=== PATIENT | male | born 1970 | race American Indian/Alaskan Native ===

== ENCOUNTER 2017-01-11 09:47 | Inpatient (IN) | payer MEDICARE ==
[2017-01-11] MEDS ORDERED: MORPHINE IM ONE (10:35)
[2017-01-11] MEDS ORDERED: ATIVAN IV ONE (10:56)
[2017-01-11] MEDS ORDERED: MORPHINE IV ONE (10:56)
[2017-01-11] MEDS ORDERED: BRETHINE SUB-Q ONE ×2 (10:56→12:26)
[2017-01-11] MEDS ORDERED: MARCAINE 0.5% INFILTRATI ONE (10:56)
[2017-01-11] MEDS ORDERED: XYLOCAINE 1% 20 mL INFILTRATI ONE (10:57)
[2017-01-11] MEDS ORDERED: NEO-SYNEPHRINE 1 MG, NACL P/F VIAL (10 ML) 9.9 ML IJ**NOT IV ONE (11:30)
[2017-01-11] MEDS ORDERED: NEO SYNEPHRINE/NS Syringe(OR USE) IV ONE ×2 (11:50→13:00)
[2017-01-11] MEDS ORDERED: TYLENOL PO PRN (12:56)
[2017-01-11] MEDS ORDERED: PROVENTIL IH PRN (12:56)
--- NOTE | 2017-01-11 13:01 | XRay Report ---
CHEST ONE VIEW INDICATION: Hypertension. COMPARISON: None similar at this institution. FINDINGS: Portable, single, frontal chest radiograph demonstrates normal cardiomediastinal silhouette. Clear lungs. Unremarkable bones. Extrinsic EKG leads. CONCLUSION: No acute disease in the chest. Thank you for the opportunity to participate in this patient's care.
--- NOTE | 2017-01-11 13:02 | Emergency Department Report ---
ED Male HPI - General Chief complaint: Urogenital-Male Stated complaint: PRIAPISM Time Seen by Provider: 01/11/17 10:39 Source: patient Mode of arrival: Ambulatory Limitations: No Limitations - History of Present Illness Initial comments: The patient states that he woke up with an erection that is painful. He is an inpatient at [facility]. He states he is here for a "nervous breakdown". He is voluntary patient. One of his medicines taken his trazodone. He does state he has taken this medicine in the past however without ill effect. He states he is still able to urinate. Complaint: other -: During the night Location: penis Radiation: none Severity: severe Quality: aching Consistency: constant Improves with: none Worsens with: none new medication denies other symptoms - Related Data Sexually active: Yes Allergies Allergy/AdvReac Type Severity Reaction Status Date / Time No Known Allergies Allergy Unverified 01/11/17 09:57 ED Review of Systems ROS: Stated complaint: PRIAPISM Other details as noted in HPI Constitutional: denies: chills, fever Eyes: denies: eye pain, eye discharge, vision change ENT: denies: ear pain, throat pain Respiratory: denies: cough, shortness of breath, wheezing Cardiovascular: denies: chest pain, palpitations Endocrine: no symptoms reported Gastrointestinal: denies: abdominal pain, nausea, diarrhea Genitourinary: as per HPI. denies: urgency, dysuria Musculoskeletal: denies: back pain, joint swelling, arthralgia Skin: denies: rash, lesions Neurological: denies: headache, weakness, paresthesias Psychiatric: denies: anxiety, depression Hematological/Lymphatic: denies: easy bleeding, easy bruising ED Past Medical Hx - Past Medical History Hx Psychiatric Treatment: Yes (major depressive disorder / bipolar / schizophrenia) - Surgical History Past Surgical History?: No - Social History Smoking Status: Former Smoker Substance Use Type: Alcohol ED Physical Exam - General Limitations: No Limitations General appearance: alert, in no apparent distress - Head Head exam: Present: atraumatic, normocephalic - Eye Eye exam: Present: normal appearance - ENT ENT exam: Present: mucous membranes moist - Neck Neck exam: Present: normal inspection - Respiratory Respiratory exam: Present: normal lung sounds bilaterally. Absent: respiratory distress - Cardiovascular Cardiovascular Exam: Present: regular rate, normal rhythm. Absent: systolic murmur, diastolic murmur, rubs, gallop - GI/Abdominal GI/Abdominal exam: Present: soft, normal bowel sounds. Absent: distended, tenderness, guarding, rebound, rigid - Rectal Rectal exam: Present: deferred - exam: Present: other (severe (100%) priapism) External exam: Present: other (otherwise unremarkable) - Extremities Exam Extremities exam: Present: normal inspection - Back Exam Back exam: Present: normal inspection - Neurological Exam Neurological exam: Present: alert, oriented X3, CN II-XII intact. Absent: motor sensory deficit - Psychiatric Psychiatric exam: Present: normal affect, normal mood - Skin Skin exam: Present: warm, dry, intact, normal color. Absent: rash ED Course Vital Signs 01/11/17 01/11/17 01/11/17 09:54 10:24 10:30 Temperature 97.6 F Pulse Rate 80 84 Respiratory 17 11 L Rate Blood Pressure 170/119 146/95 155/94 O2 Sat by Pulse 99 Oximetry 01/11/17 01/11/17 01/11/17 10:45 11:00 11:15 Temperature Pulse Rate 79 78 79 Respiratory 22 8 L 13 Rate Blood Pressure 163/104 159/107 173/115 O2 Sat by Pulse Oximetry 01/11/17 01/11/17 01/11/17 11:30 11:45 12:01 Temperature Pulse Rate 92 H 101 H 120 H Respiratory 20 17 27 H Rate Blood Pressure 177/109 156/83 182/108 O2 Sat by Pulse Oximetry 01/11/17 12:15 Temperature Pulse Rate 101 H Respiratory 15 Rate Blood Pressure 144/87 O2 Sat by Pulse Oximetry - Reevaluation(s) Reevaluation #1: I spoke with Dr. Jones the urologist. He asked me to proceed with attempted reduction of the priapism. See note. He stated he would consult. 01/11/17 13:11 Reevaluation #2: Procedure note: Reduction of priapism The patient was premedicated with morphine and Ativan. A mixture of 0.5 bupivacaine and 1% lidocaine was deployed at the base of the penis to achieve a penile block. This was successful. I used a Y set attached to an 18-gauge needle and aspirated 100-120 mL of blood from the corpus cavernosus at the 2:00 and 10 o'clock position. Saline was used for irrigation as well. I instilled 0.5 mg of phenylephrine into the corpus cavernosus bilaterally. Placement was confirmed using saline flush. The patient's priapism did reduce to at least 25% of its initial size IV in lieu of the procedure. The patient was symptomatically improved. Dr. Jones was paged to notify him of the above progress. 01/11/17 13:13 Reevaluation #3: The patient was found to have labile hypertension in the emergency department. He was admitted by Dr. Bray to the hospitalist service. Dr. Bray informed me that his blood pressure did go down spontaneously. I do not believe he has yet had to medicate the patient. A consult was placed to Dr. Jones. 01/11/17 13:17 - Procedure Description Procedures done: Reduction of priapism. See above note Critical care attestation.: If time is entered above; I have spent that time in minutes in the direct care of this critically ill patient, excluding procedure time. ED Disposition Clinical Impression: Priapism, Uncontrolled hypertension Disposition: OP ADMIT IP TO THIS HOSP Is pt being admited?: Yes Does the pt Need Aspirin: Yes Condition: Stable Instructions: Hypertension (ED) Referrals: ALEC GRACE MD [Primary Care Provider] - 3-5 Days Time of Disposition: 13:19
--- NOTE | 2017-01-11 13:17 | Admit Criteria Form ---
Admission Criteria Documentation: UROLOGIC DISEASE G Clinical Indications for Admission to Inpatient Care (Place ' X' for any and all applicable criteria): Hospital admission is needed for appropriate care of the patient because of 1 or more of the following: [ ]I. New-onset Reduced urine output, or hydronephrosis remaining after emergency or observation level care (as appropriate ) [ ]II. Renal disease needing inpatient care indicated by 1 or more of the following(2)(3)(4): [ ]a) Acute renal failure [ ]b) Significant uremic complications [ ]c) Acute kidney injury (that does not qualify as Acute renal failure ) requiring inpatient care indicated by ALL of the following(5)(6)(7)(8) (9): [ ]i) Worsening clinical status (eg, rising creatinine) despite outpatient and observation care treatment (eg, hydration) [ ]ii) Acute kidney injury indicated by 1 or more of the following: [ ]1) 2-fold or more rise in serum creatinine from baseline [ ]2) Reduction of more than 50% in estimated glomerular filtration rate from baseline [ ]3) Urine output less than 0.5 mL/kg/hr for 12 hours despite adequate volume status [ ]d) Systemic cause (eg, Goodpasture syndrome ) needing inpatient care [ ]e) Rapidly progressive renal disease needing inpatient care (eg, plasmapheresis, immunosuppression ) Anasarca needing inpatient care [ ]f) Hemoptysis [ ]g) Hemolysis, thrombosis, or infraction [ ]h) Anasarca needing inpatient care [ ]III. New-onset or uncontrolled nephrogenic diabetes insipidus [ ]IV. Urologic infection requiring inpatient care as indicated by 1 or more of the following(10)(11)(12): [ ]a) Hemodynamic instability [ ]b) Dehydration that is severe or persistent [ ]c) Failure of outpatient treatment [ ]d) Nisha's gangrene [ ]e) Urinary obstruction [ ]f) Immunocompromised state (eg, chronic steroid use ) [ ]g) Known renal or urologic abnormalities(eg, indwelling catheter, structural abnormalities ) [ ]h) Recent urologic manipulation or procedure Urinary obstruction [ ]i) Abscess requiring drainage Immunocompromised state [ ]V. Acute urinary retention requiring inpatient management as indicated by ANY ONE of the following(1)(13): [ ]a) Retention cannot be alleviated via emergency or observation level care (eg, urinary catheter placement) [ ]b) Hemodynamic instability [ ]c) Acute neurologic etiology (eg, cauda equina) [ ]d) Dehydration or other complications not manageable with emergency or observation level care [ ]e) Acute kidney injury (that does not qualify as Acute renal failure ) requiring inpatient care indicated by ALL of the following(5)(6)(7)(8) (9): [ ]i) Acute kidney injury indicated by ANY ONE of the following: [ ]1) 2-fold or more rise in serum creatinine from baseline [ ]2) Reduction of more than 50% in estimated glomerular filtration rate from baseline [ ]ii) Worsening clinical status (eg, rising creatinine) despite outpatient and observation care treatment (eg, hydration) [ ]. Gross hematuria requiring inpatient management as indicated by ANY ONE of the following(1)(2): [ ]a) Evidence of renal obstruction [ ]b) Reduced urine output [ ]c) Clot retention after urinary catheterization and irrigation [ ]d) Severe Anemia [ ]e) Systemic cause needing inpatient treatment (eg, Goodpasture syndrome) [X]VII. Priapism not responsive to emergency or observation care treatment [ ]VII. Scrotal, testicular, or epididymal disorder requiring inpatient care indicated by 1 or more of the following(1)(14)(15)(16): [ ]a) Scrotal edema or infection not manageable with emergency or observation level care [ ]b) Orchitis not manageable with emergency or observation level care [ ]c) Epididymitis not manageable with emergency or observation level of care [ ]d) Other scrotal, testicular, or epididymal disorder (eg, infection, inflammation) not manageable with emergency or observation level care [ ]IX. Complications of transplanted kidney indicated by 1 or more of the following [ ]a) Acute graft rejection requiring inpatient management (eg, intravenous immunosuppression) [ ]b) Acute kidney injury indicated by ALL of the following i) Acute kidney injury indicated by 1 or more of the following 1) 2-fold or more rise in serum creatinine from baseline 2) Reduction of more than 50% in estimated glomerular filtration rate from baseline 3) Urine output less than 0.5 mL/kg/hr for 12 hours despite adequate volume status ii) Kidney injury too severe or not responsive to outpatient and observation care treatment (eg, hydration) [ ]c) Infection requiring inpatient management (eg, Hemodynamic instability, need for intravenous antimicrobial treatment) [ ]d) Other complication of transplanted kidney requiring patient management (eg, severe diarrhea leading to malabsorption) [ ]X. Trauma to renal, genital, or urologic system requiring inpatient medical care [ ]XI. Urologic Disease condition, symptom, or finding for which emergency and observation care have failed or are not considered appropriate. The original [employer] content created by [employer] has been revised. The portions of the content which have been revised are identified through the use of italic text or in bold, and [facility] has neither reviewed nor approved the modified material. All other unmodified content is copyright [facility]. Please see references footnoted in the original [facility] edition 2016 Admission Criteria Met: Yes
[2017-01-11] MEDS ORDERED: BABY ASPIRIN PO ONE (13:19)
[2017-01-11 13:36] LABS: Alanine Aminotransferase 15 units/L (7-56); Albumin 4.2 g/dL (3.9-5); Albumin/Globulin Ratio 1.4 %; Alkaline Phosphatase 59 units/L (35-129); Basophils % (Auto) 0.5 % (0.0-1.8); Bilirubin,Total < 0.20 mg/dL (0.1-1.2); Blood Urea Nitrogen 9 mg/dL (9-20); Calcium 9.3 mg/dL (8.4-10.2); Carbon Dioxide 27 mmol/L (22-30); Eosinophils % (Auto) 1.6 % (0.0-4.3); Glucose 101 mg/dL (75-100); Hemoglobin 11.9 gm/dl (11.8-15.2); Mean Corpuscular HGB Conc 34 % (32-34); Mean Corpuscular Hemoglobin 34 pg (28-32); Mean Corpuscular Volume 99 fl (84-94); Platelet Count 330 K/mm3 (140-440); Red Blood Count 3.55 M/mm3 (3.65-5.03); Red Cell Distribution Width 12.4 % (13.2-15.2); Total Protein 7.2 g/dL (6.3-8.2); White Blood Count 6.1 K/mm3 (4.5-11.0)
[2017-01-11 13:37] LABS: Anion Gap 19 mmol/L; Chloride 100.4 mmol/L (98-107); Potassium 3.5 mmol/L (3.6-5.0); Sodium 143 mmol/L (137-145)
[2017-01-11 13:40] LABS: Bilirubin,Direct < 0.2 mg/dL (0-0.2)
[2017-01-11 13:44] LABS: INR 1.04 (0.87-1.13)
[2017-01-11 13:45] LABS: Partial Thromboplastin Time 28.4 Sec. (24.2-36.6)
[2017-01-11] MEDS ORDERED: BABY ASPIRIN ONE (13:47)
--- NOTE | 2017-01-11 16:08 | Consultation ---
History of Present Illness - Reason for Consult Consult date: 01/11/17 - History of Present Illness CC: priapism 6 yr old patient states that he woke up with an erection that is painful. He is an inpatient at [facility]. He states he is here for a "nervous breakdown". He is voluntary patient. One of his medicines taken his trazodone. He does state he has taken this medicine in the past however without ill effect. He states he is still able to urinate. no hx of priapism in the past (no sickle cell or drug abuse) The patient was premedicated with morphine and Ativan. A mixture of 0.5 bupivacaine and 1% lidocaine was deployed at the base of the penis to achieve a penile block. This was successful. I used a Y set attached to an 18-gauge needle and aspirated 100-120 mL of blood from the corpus cavernosus at the 2:00 and 10 o'clock position. Saline was used for irrigation as well. I instilled 0.5 mg of phenylephrine into the corpus cavernosus bilaterally. Placement was confirmed using saline flush. exam at 4pm (flaccid penis) discussed with Dr. Daniels & nurse A/P Priapism (appears durg induce----Trazadone) ice pack to penis x 24 hours Medications and Allergies Allergies Allergy/AdvReac Type Severity Reaction Status Date / Time No Known Allergies Allergy Unverified 01/11/17 09:57 Active Meds: Active Medications Acetaminophen (Tylenol) 650 mg PO Q4H PRN PRN Reason: Pain MILD(1-3)/Fever >100.5/GIRON Albuterol (Proventil) 2.5 mg IH Q4HRT PRN PRN Reason: Shortness Of Breath Influenza Virus Vaccine Quadrival (Fluarix Quad [id number](36 Mos+)) 0.5 ml IM .ONCE ONE Stop: 01/12/17 12:01 Exam - Constitutional Vitals: Temp Pulse Resp BP Pulse Ox 97.6 F 101 H 15 144/87 98 01/11/17 09:54 01/11/17 12:15 01/11/17 12:15 01/11/17 12:15 01/11/17 15:05 Results - Labs CBC & Chem 7: 01/11/17 13:04 01/11/17 13:04 Labs: Abnormal lab results 01/11/17 01/11/17 Range/Units 13:04 13:04 RBC 3.55 L (3.65-5.03) M/mm3 Hct 35.0 L (35.5-45.6) % MCV 99 H (84-94) fl MCH 34 H (28-32) pg RDW 12.4 L (13.2-15.2) % Hunt % (Auto) 7.5 H (0.0-7.3) % Potassium 3.5 L (3.6-5.0) mmol/L Glucose 101 H (75-100) mg/dL
--- NOTE | 2017-01-11 17:15 | History and Physical Report ---
History of Present Illness Date of admission: 01/11/17 12:56 Chief complaint: My leo wont to down History of present illness: 46 YO Male with Depression, Bipolar Disorder, Schizophrenia presents to ED for evaluation. Pt states that he awoke this am with a painful erection. He is an inpatient at [facility] undergoing voluntary treatment for a "nervous breakdown ". Pt is taking trazodone. PT states he is still able to urinate. Pt denies fever, chills, CP, palpitations, trauma, BRBPR, recent ill contacts, high risk sexual behavior, NVD, syncope, headache, dizziness, or hematuria. Pt seen and evaluated in ED, and underwent evacuation of 250cc of blood from his penis. Past History Past Medical History: other (Depression, bipolar, schizophrenia) Past Surgical History: No surgical history, Other (reviewed) Social history: single. denies: smoking, alcohol abuse, prescription drug abuse , IV drug use Family history: hypertension Medications and Allergies Allergies Allergy/AdvReac Type Severity Reaction Status Date / Time No Known Allergies Allergy Unverified 01/11/17 09:57 Active Meds: Active Medications Acetaminophen (Tylenol) 650 mg PO Q4H PRN PRN Reason: Pain MILD(1-3)/Fever >100.5/GIRON Albuterol (Proventil) 2.5 mg IH Q4HRT PRN PRN Reason: Shortness Of Breath Influenza Virus Vaccine Quadrival (Fluarix Quad [id number](36 Mos+)) 0.5 ml IM .ONCE ONE Stop: 01/12/17 12:01 Review of Systems Constitutional: no weight loss, no weight gain, no fever, no chills Ears, nose, mouth and throat: no ear pain, no ear discharge, no tinnitis, no decreased hearing, no nose pain Cardiovascular: no chest pain, no orthopnea, no palpitations, no rapid/ irregular heart beat, no edema Respiratory: no cough, no cough with sputum, no excessive sputum, no hemoptysis , no shortness of breath Gastrointestinal: no abdominal pain, no nausea, no vomiting, no diarrhea Genitourinary Male: genital pain, no dysuria, no hematuria, no flank pain, no discharge, no urinary hesitancy, no nocturia, no incontinence, no genital sores , no impotence, no decreased libido, no testicular pain, no testicular lump, no difficulties fathering child, no polyuria, no urinary retention, no kidney stones Rectal: no pain, no incontinence, no bleeding Musculoskeletal: no neck stiffness, no neck pain, no shooting arm pain, no arm numbness/tingling, no low back pain Integumentary: no rash, no pruritis, no redness, no sores, no wounds Neurological: no head injury, no paralysis, no weakness, no parathesias, no migraines, no change in speech, no memory loss Psychiatric: no anxiety, no memory loss, no change in sleep habits, no sleep disturbances, no insomnia Endocrine: no cold intolerance, no heat intolerance, no polyphagia, no excessive thirst, no thyroid mass, no palpatations Hematologic/Lymphatic: no easy bruising, no easy bleeding Allergic/Immunologic: no urticaria, no allergic rhinitis, no wheezing Exam - Constitutional Vitals: Temp Pulse Resp BP Pulse Ox 98.0 F 94 H 20 139/84 99 01/11/17 15:30 01/11/17 15:30 01/11/17 15:30 01/11/17 15:30 01/11/17 15:30 General appearance: Present: mild distress - EENT Eyes: Present: PERRL ENT: hearing intact, clear oral mucosa - Neck Neck: Present: supple, normal ROM - Respiratory Respiratory effort: normal Respiratory: bilateral: CTA - Cardiovascular Heart Sounds: Present: S1 & S2. Absent: rub, click - Extremities Extremities: pulses symmetrical, No edema Peripheral Pulses: within normal limits - Abdominal General gastrointestinal: Present: soft, non-tender, non-distended, normal bowel sounds Male genitourinary: Present: normal (Priaprism, penile swelling) - Integumentary Integumentary: Present: clear, warm, dry - Musculoskeletal Musculoskeletal: gait normal, strength equal bilaterally - Psychiatric Psychiatric: appropriate mood/affect, intact judgment & insight - Neurologic Neurologic: CNII-XII intact, moves all extremities Results - Labs CBC & Chem 7: 01/11/17 13:04 01/11/17 13:04 Labs: Abnormal lab results 01/11/17 01/11/17 Range/Units 13:04 13:04 RBC 3.55 L (3.65-5.03) M/mm3 Hct 35.0 L (35.5-45.6) % MCV 99 H (84-94) fl MCH 34 H (28-32) pg RDW 12.4 L (13.2-15.2) % [place] % (Auto) 7.5 H (0.0-7.3) % Potassium 3.5 L (3.6-5.0) mmol/L Glucose 101 H (75-100) mg/dL Assessment and Plan - Patient Problems (1) Priapism Current Visit: Yes Status: Acute Plan to address problem: Urology consulted in ED, S/P removal of 250cc of blood from penis, supportive care (2) Depression Current Visit: Yes Status: Acute Qualifiers: Depression Type: major depressive disorder Major depression recurrence: M Active/Remission status: currently active Major depression episode severity : M Psychotic features: P Trimester: T Plan to address problem: Psych consulted, supportive care, continue current therapy (3) Schizophrenia Current Visit: Yes Status: Acute Qualifiers: Schizophrenia type: schizophreniform disorder Qualified Code(s): 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 (5) DVT prophylaxis Current Visit: Yes Status: Acute
[2017-01-12 09:15] VITALS: BP 160/96
--- NOTE | 2017-01-12 10:45 | Discharge Summary ---
Providers - Providers Date of Admission: 01/11/17 12:56 Date of discharge: 01/12/17 Attending physician: STACI LUTHER 01/11/17 17:24 psychiatry consult [Consult to Mental Health] [CONS] Routine Reason For Exam: depression, schizophrenia Place consult to:: psych Notified:: psych Phone number called:: [phone] Was contact made?: Yes If yes, spoke with:: ammy Time called:: 18:07 Primary care physician: ALEC GRACE Hospitalization Reason for admission: painful erection Condition: Stable Hospital course: 46 year old Male with Depression, Bipolar Disorder, Schizophrenia in treatment with Trazodone presented for lasting painful erection. Diagnosed with drug induced priapism. Urology was consulted and problem resolved. Discharged in stable condition. He will return to [place] to continue voluntary treatment of psych disorder. Advised to avoid trazodone and discuss with his psychiatrist. Discharge diagnoses: Drug-induced priapism Psychiatric disorder Disposition: - TO HOME OR SELFCARE Time spent for discharge: 35 min Core Measure Documentation - Palliative Care Palliative Care/ Comfort Measures: Not Applicable - Core Measures Any of the following diagnoses?: none Exam - Physical Exam Narrative exam: Seen and examined: - Constitutional Vitals: Temp Pulse Resp BP Pulse Ox 98.0 F 81 20 160/96 98 01/12/17 07:00 01/12/17 07:00 01/12/17 07:00 01/12/17 07:00 01/12/17 09:40 General appearance: Present: no acute distress - EENT Eyes: Present: PERRL, EOM intact - Neck Neck: Present: supple, normal ROM. Absent: masses or JVD - Respiratory Respiratory effort: normal Respiratory: bilateral: CTA, negative: rhonchi, wheezing - Cardiovascular Rhythm: regular Heart Sounds: Present: S1 & S2. Absent: systolic murmur - Extremities Extremities: no ischemia - Abdominal General gastrointestinal: Present: soft, non-tender, non-distended, normal bowel sounds - Psychiatric Psychiatric: cooperative - Neurologic Neurologic: CNII-XII intact, no focal deficits Plan Activity: advance as tolerated Diet: low cholesterol, low salt Additional Instructions: Avoid Trazodone Follow up with: ALEC GRACE MD [Primary Care Provider] - 3-5 Days
[2017-01-12] MEDS ORDERED: Fluarix Quad 2017-2018(36 MOS+) IM ONE (12:00)
--- NOTE | 2017-01-12 12:31 | Progress Note ---
Subjective Date of service: 01/12/17 Interval history: CC: priapism 46 yr old patient states that he woke up with an erection that is painful. He is an inpatient at [facility] [facility]. He states he is here for a "nervous breakdown". He is voluntary patient. One of his medicines taken his trazodone. He does state he has taken this medicine in the past however without ill effect. He states he is still able to urinate. no hx of priapism in the past (no sickle cell or drug abuse) 01-11-17 The patient was premedicated with morphine and Ativan. A mixture of 0.5 bupivacaine and 1% lidocaine was deployed at the base of the penis to achieve a penile block. This was successful. Y set attached to an 18-gauge needle and aspirated 100-120 mL of blood from the corpus cavernosus at the 2:00 and 10 o'clock position. Saline was used for irrigation as well. I instilled 0.5 mg of phenylephrine into the corpus cavernosus bilaterally. Placement was confirmed using saline flush. no more priapism A/P Priapism (appears durg induce----Trazadone) ok to dc home flu Objective - Constitutional Vitals: Vital Signs - 12hr 01/12/17 01/12/17 01/12/17 00:43 06:41 07:00 Temperature 98.0 F Pulse Rate 94 H 81 Respiratory 20 Rate Respiratory 20 Rate [Penis] Blood Pressure 160/96 O2 Sat by Pulse 97 92 Oximetry 01/12/17 09:40 Temperature Pulse Rate Respiratory Rate Respiratory Rate [Penis] Blood Pressure O2 Sat by Pulse 98 Oximetry - Labs CBC & Chem 7: 01/11/17 13:04 01/11/17 13:04 Labs: Abnormal lab results 01/11/17 01/11/17 Range/Units 13:04 13:04 RBC 3.55 L (3.65-5.03) M/mm3 Hct 35.0 L (35.5-45.6) % MCV 99 H (84-94) fl MCH 34 H (28-32) pg RDW 12.4 L (13.2-15.2) % [place] % (Auto) 7.5 H (0.0-7.3) % Potassium 3.5 L (3.6-5.0) mmol/L Glucose 101 H (75-100) mg/dL
== END 2017-01-12 14:30 | disposition home or self-care (01) | DRG 730 ==
LOC: ED 09:47 → 3A 12:56
PROVIDERS: ADMIT Internal Medicine; ATTEND Internal Medicine
DX: N48.33 Priapism, drug-induced (principal); F20.9 Schizophrenia, unspecified; I10 Essential (primary) hypertension; F31.9 Bipolar disorder, unspecified; Z82.49 Family history of ischemic heart disease and other diseases of the circulatory system
CPT/HCPCS: 36415; 71010; 80048; 80074; 83735; 85025; 85610; 85730; 90471; 90686; 94660; 96372; 96374; 96375; G0008; J2060; J2270; J2370; J3105

== ENCOUNTER 2017-01-27 09:32 | Emergency (ER) | payer MEDICARE ==
[2017-01-27] MEDS ORDERED: MORPHINE IM ONE (10:47)
[2017-01-27] MEDS ORDERED: NEO-SYNEPHRINE 1 MG, NACL P/F VIAL (10 ML) 9.9 ML IJ**NOT IV ONE (10:47)
[2017-01-27] MEDS ORDERED: XYLOCAINE 2% INFILTRATI ONE (10:53)
--- NOTE | 2017-01-27 10:58 | Emergency Department Report ---
HPI - General Chief Complaint: Urogenital-Male Time Seen by Provider: 01/27/17 10:39 - HPI HPI: This is a 46 year-old male presents the emergency department with the complaint of priapism since this morning that is a reaction to some type of medication that he was given over at [place]. The patient has a history of this one time previous as a reaction to trazodone but says he has not taken that medication this time. It is painful and he has some difficulty with urination at this point. He did not take anything for her symptoms prior to presentation. He has a past medical history of hypertension and a psychiatric history of bipolar disorder and schizophrenia. ED Past Medical Hx - Past Medical History Hx Hypertension: Yes Hx Psychiatric Treatment: Yes (major depressive disorder / bipolar / schizophrenia) - Social History Smoking Status: Never Smoker Substance Use Type: None ED Review of Systems ROS: Stated complaint: ALLERGIC REACTION Other details as noted in HPI Comment: All other systems reviewed and negative Constitutional: denies: chills, fever Eyes: denies: eye pain, eye discharge, vision change ENT: denies: ear pain, throat pain Respiratory: denies: cough, shortness of breath, wheezing Gastrointestinal: denies: abdominal pain, nausea, diarrhea Genitourinary: other (priapism). denies: urgency, dysuria Musculoskeletal: denies: back pain, joint swelling, arthralgia Skin: denies: rash, lesions Neurological: denies: headache, weakness, paresthesias Physical Exam - Physical Exam Vital Signs: Vital Signs 01/27/17 09:50 Temperature 98 F Pulse Rate 103 H Respiratory 18 Rate Blood Pressure 154/97 O2 Sat by Pulse 100 Oximetry Physical Exam: GENERAL: The patient is well-developed well-nourished. HENT: Normocephalic. Atraumatic. Patient has moist mucous membranes. EYES: Extraocular motions are intact. Pupils equal reactive to light bilaterally. NECK: Supple. Trachea is midline. CHEST/LUNGS: Clear to auscultation. There is no respiratory distress noted. HEART/CARDIOVASCULAR: Regular. There is no tachycardia. There is no gallop rub or murmur. ABDOMEN: Abdomen is soft, nontender. Patient has normal bowel sounds. There is no abdominal distention. SKIN: Skin is warm and dry.. NEURO: The patient is awake, alert, and oriented. The patient is cooperative. The patient has no focal neurologic deficits. The patient has normal speech and gait. MUSCULOSKELETAL: There is no tenderness or deformity. There is no limitation range of motion. There is no evidence of acute injury. : Patient has a firm erection. There are no lesions to the penis or scrotum. ED Course Vital Signs 01/27/17 09:50 Temperature 98 F Pulse Rate 103 H Respiratory 18 Rate Blood Pressure 154/97 O2 Sat by Pulse 100 Oximetry - Penile Procedure Consent Obtained: verbal consent Time Out Performed: Yes Indication: other (aspiration and/or drainage of priapism) Procedural Sedation: No Sedation/Analgesia: other (patient was premedicated with IM morphine) Local Anesthesia Used: Lidocaine 2% without EPI Amount of Anesthesia Used (mls): 5 Priapism Management: aspiration, phenylephrine injection Complications: none Patient Tolerated Procedure: well Additional Comments: Betadine was used to clean the area prior to the procedure and prior to the dorsal penile block. After the patient had appropriate anesthesia, a 18-gauge needle was placed in the lateral portion of the corpus cavernosum. A Y adapter was used. The procedure was the same for both sides. About 60 cc of blood was aspirated and/or drained. Sterile saline was then used to flush the corpus cavernosum and injections of the phenylephrine at 0.5 mg were injected. There is no obvious complications. Patient was reevaluated and there was at least a 50% reduction in the erection and patient had complete resolution of his pain. ED Medical Decision Making - Medical Decision Making 46-year-old male presents to the emergency department with priapism since earlier in the morning upon waking. He had this problem with trazodone in the past and some other type of psychiatric medication appears to be causing it. As per the procedural section, there was aspiration/drainage and phenylephrine injection done after a penile nerve block. The patient had good improvement in the priapism and resolution of his discomfort. He was monitored for an hour or so after the procedure make sure there was no complications from the procedure itself as well as the phenylephrine injection. Patient is feeling better and asking for discharge back to [place]. He was given a referral for urology and encouraged to try and find the source of this medication for the priapism and avoid it. He will return to the ER with any return of his symptoms or any acute distress. Critical Care Time: No Critical care attestation.: If time is entered above; I have spent that time in minutes in the direct care of this critically ill patient, excluding procedure time. ED Disposition Clinical Impression: Priapism Hypertension Qualifiers: Hypertension type: essential hypertension Qualified Code(s): I10 - Essential ( primary) hypertension Disposition: TO HOME OR SELFCARE Is pt being admited?: No Condition: Stable Instructions: Priapism (ED), Hypertension (ED) Additional Instructions: Please follow up with a primary care physician in the next few days. Do not take trazodone or whatever medication appears to be causing your recurrent priapism. Return to the emergency Department with any worsening of her symptoms or any acute distress. I have given her a referral for a local urologist, Dr. Jones, who you have seen in the past, to follow up regarding about your priapism. Referrals: MIGUEL MCCALL MD [Primary Care Provider] - 3-5 Days [facility] [Outside] - 3-5 Days GAVINO JONES MD [Staff Physician] - 3-5 Days Time of Disposition: 13:50
[2017-01-27 11:55] LABS: Bilirubin,Urine NEG (Negative); Blood,Urine NEG (Negative); Ketones,Urine NEG (Negative); Leukocyte Esterase,Urine NEG (Negative); Nitrite,Urine NEG (Negative); Protein,Urine <15 mg/dL mg/dL (Negative); RBC,Urine < 1.0 /HPF (0.0-6.0); Urobilinogen,Urine < 2.0 mg/dL (<2.0)
[2017-01-27 12:03] LABS: WBC,Urine < 1.0 /HPF (0.0-6.0)
[2017-01-27 13:55] VITALS: BP 140/90
== END 2017-01-27 13:55 | disposition home or self-care (01) ==
LOC: ED 09:32
DX: N48.30 Priapism, unspecified (principal); I10 Essential (primary) hypertension
CPT/HCPCS: 54220; 81001; 96372; 96374; 99283; J2270

== ENCOUNTER 2017-02-08 06:58 | Emergency (ER) | payer MEDICARE ==
[2017-02-08] MEDS ORDERED: NACL 0.9% 1000 ML 1,000 ML IV ONE (08:01)
[2017-02-08] MEDS ORDERED: MORPHINE IV ONE (08:01)
--- NOTE | 2017-02-08 08:10 | Emergency Department Report ---
HPI - General Chief Complaint: Allergic Reaction Time Seen by Provider: 02/08/17 07:52 - HPI HPI: This is a 46 year-old male presents to the emergency department with a complaint of a 4 hour history of a painful and sustained erection. The patient is currently receiving voluntary outpatient treatment from [facility] for schizophrenia. This will be the patient's third visit in the past month for priapism. The first time he had taken trazodone and had some type of a reaction. The second time he says it was not trazodone but a similar type of medication. He says that they once again have changed his medication and that he woke up this morning with the erection and it has not gone away. He has a past medical history of hypertension. He has a psychiatric history of a cord disorder, schizophrenia. No recent travel. He has not taken anything for his symptoms prior to presentation. ED Past Medical Hx - Past Medical History Previous Medical History?: Yes Hx Hypertension: Yes Hx Psychiatric Treatment: Yes (major depressive disorder / bipolar / schizophrenia) Additional medical history: Priaprism - Surgical History Past Surgical History?: No - Social History Smoking Status: Former Smoker Substance Use Type: Prescribed - Medications Home Medications: Home Medications Medication Instructions Recorded Confirmed Last Taken Type Sulfamethoxazole/Trimethoprim 1 each PO BID #10 tablet 02/08/17 Unknown Rx [Bactrim DS TAB] ED Review of Systems ROS: Stated complaint: ALLERGIC REACTION Other details as noted in HPI Comment: All other systems reviewed and negative Constitutional: denies: chills, fever Eyes: denies: eye pain, eye discharge, vision change ENT: denies: ear pain, throat pain Respiratory: denies: cough, shortness of breath, wheezing Cardiovascular: denies: chest pain, palpitations Gastrointestinal: denies: abdominal pain, nausea, diarrhea Genitourinary: other (priapism). denies: dysuria Musculoskeletal: denies: back pain, joint swelling, arthralgia Skin: denies: rash, lesions Neurological: denies: headache, weakness, paresthesias Physical Exam - Physical Exam Vital Signs: Vital Signs 02/08/17 07:16 Temperature 97.2 F L Pulse Rate 91 H Respiratory 20 Rate Blood Pressure 159/97 O2 Sat by Pulse 98 Oximetry Physical Exam: GENERAL: The patient is well-developed well-nourished. HENT: Normocephalic. Atraumatic. Patient has moist mucous membranes. EYES: Extraocular motions are intact. Pupils equal reactive to light bilaterally. NECK: Supple. Trachea is midline. CHEST/LUNGS: Clear to auscultation. There is no respiratory distress noted. HEART/CARDIOVASCULAR: Regular. There is no tachycardia. There is no gallop rub or murmur. ABDOMEN: Abdomen is soft, nontender. Patient has normal bowel sounds. There is no abdominal distention. SKIN: Skin is warm and dry. NEURO: The patient is awake, alert, and oriented. The patient is cooperative. The patient has no focal neurologic deficits. The patient has normal speech and gait. MUSCULOSKELETAL: There is no tenderness or deformity. There is no limitation range of motion. There is no evidence of acute injury. : The patient has a painful, rigid erection in a circumcised penis. ED Course Vital Signs 02/08/17 07:16 Temperature 97.2 F L Pulse Rate 91 H Respiratory 20 Rate Blood Pressure 159/97 O2 Sat by Pulse 98 Oximetry ED Medical Decision Making - Medical Decision Making 46-year-old male presents to the emergency department with his third episode of priapism within the last month. He has required aspiration and phenylephrine injections the last 2 times. He saw urology briefly inpatient after the first visit but was encouraged to see urology after his last visit, 2 weeks ago, but never did follow-up. He continues taking psychiatric medications for his schizophrenia appear to be causing this reaction but there could be other reasons for the recurrent priapism. The area was all cleaned with Betadine solution. A penile block was done with an ejection of about 2 mL of 2% lidocaine without epinephrine at the 2 at 10:00 positions. There was successful nerve block and anesthesia. At this point bilateral 18-gauge needles were placed within the corpus cavernosa. About 100 mL of blood was aspirated. 5 mg of a diluted phenylephrine was placed bilaterally. After the needles were removed, the patient held manual pressure over the wounds. Upon reevaluation there was about 50% decrease in the erection. There was some swelling to the distal portion of the shaft, proximal to the glans, that resulted after the procedure but the patient is circumcised and there is no paraphimosis. Some ice and pressure was used and the swelling appears to be decreased. The patient was monitored for multiple hours after getting the phenylephrine and there was no cardiac side effects. The patient has been able to urinate without any difficulty. I spoke to the patient a great detail about the need to follow up with urology as soon as possible and he understands that with 3 episodes of priapism already , there could be some underlying damage or future concern for erectile dysfunction. He was given the name of Dr. Ledesma at the understands he could see any urologist that will take his insurance or he can get in to see. He was placed on some antibiotics to avoid any infection from the procedure despite the fact that sterile procedure was used. He will return to ER with any worsening of symptoms or any acute distress. . - Differential Diagnosis priapism, sickle cell, medication induced Critical Care Time: No Critical care attestation.: If time is entered above; I have spent that time in minutes in the direct care of this critically ill patient, excluding procedure time. ED Disposition Clinical Impression: Priapism Hypertension Qualifiers: Hypertension type: essential hypertension Qualified Code(s): I10 - Essential ( primary) hypertension Disposition: TO HOME OR SELFCARE Is pt being admited?: No Condition: Stable Instructions: Hypertension (ED) Additional Instructions: It is absolutely imperative that you follow up with a urologist as soon as possible. Please speak with your psychiatrist and/or pharmacist about your recent history of priapism (prolonged erections) and which psychiatric medications may be the cause. Return to the emergency Department with any return of your priapism, redness or swelling of the penis with signs/symptoms of infection, any inability to urinate, or any acute distress. Prescriptions: Sulfamethoxazole/Trimethoprim [Bactrim DS TAB] 1 each PO BID #10 tablet Referrals: MIGUEL MCCALL MD [Primary Care Provider] - 3-5 Days JOHN KOO MD [Staff Physician] - 3-5 Days ALYCE THAO MD [Referring] - 3-5 Days ALYCE BAEZ MD [Referring] - 3-5 Days Time of Disposition: 13:44
[2017-02-08] MEDS ORDERED: XYLOCAINE 2% INFILTRATI ONE (08:41)
[2017-02-08] MEDS ORDERED: NEO-SYNEPHRINE 1 MG, NACL P/F VIAL (10 ML) 9.9 ML IJ**NOT IV ONE (09:00)
[2017-02-08 13:02] VITALS: BP 152/100
[2017-02-08] MEDS ORDERED: BACTRIM DS PO ONE (13:46)
== END 2017-02-08 13:58 | disposition home or self-care (01) ==
LOC: ED 06:58
DX: N48.30 Priapism, unspecified (principal); I10 Essential (primary) hypertension; Z87.891 Personal history of nicotine dependence
CPT/HCPCS: 54220; 96361; 96374; 96375; 99283; J2270; J2370; J7030